=== PATIENT | female | born 1955 | race Caucasian/White ===

== ENCOUNTER 2023-10-28 12:43 | Observation (INO) ==
[2023-10-28] MEDS ORDERED: 0.9 % SODIUM CHLORIDE 1,000 ML IV ONE ×2 (12:46→13:42)
[2023-10-28 13:00] LABS: POC Calcium, Ionized 0.94 (1.16-1.32); POC Creatinine 1.3 (0.6-1.2)
[2023-10-28 13:38] LABS: Basophils # (Auto) 0.05 K/mcL (0.00-0.30); Basophils % (Auto) 0.6 % (0.0-2.0); Eosinophils # (Auto) 0.06 K/mcL (0.00-0.70); Eosinophils % (Auto) 0.7 % (0.0-7.0); Hematocrit 40.1 % (34.1-44.9); Hemoglobin 13.4 g/dL (11.2-15.7); Lymphocytes # (Auto) 4.02 K/mcL (1.50-4.80); Lymphocytes % (Auto) 48.4 % (15.5-49.0); Mean Cell Volume 95.5 fL (80.0-100.0); Mean Corpuscular HGB Conc 33.4 g/dL (31.0-36.0); Mean Platelet Volume 9.3 fL (8.8-12.5); Monocytes # (Auto) 0.46 K/mcL (0.10-0.90); Monocytes % (Auto) 5.5 % (1.0-12.0); Neutrophils % (Auto) 44.3 % (38.0-78.0); Platelet Count 278 K/mcL (140-440); Red Cell Distribution Width 13.4 % (11.5-14.5); WBC 8.3 K/mcL (4.5-11.0)
[2023-10-28] MEDS ORDERED: fentaNYL 100 MCG/2 ML VIAL IV ONE ×3 (14:02→16:31)
[2023-10-28] MEDS ORDERED: KETOROLAC 30 MG/ML VIAL IV ONE (16:31)
[2023-10-28] MEDS ORDERED: ACETAMINOPHEN 325 MG TABLET PO PRN ×2 (17:35→17:56)
[2023-10-28] MEDS ORDERED: ONDANSETRON 4 MG/2 ML VIAL IV PRN ×2 (17:35→17:56)
[2023-10-28] MEDS ORDERED: morphine 4 MG/ML VIAL IV PRN ×2 (17:35→17:56)
[2023-10-28 17:51] LABS: Alcohol,Blood 0.271 gm/dL (<0.010)
[2023-10-28] MEDS ORDERED: SENNOSIDES 1 TABLET PO PRN (17:56)
[2023-10-28] MEDS ORDERED: KETOROLAC 15 MG/ML VIAL IV PRN (17:56)
[2023-10-28] MEDS ORDERED: POLYETHYLENE GLYCOL 3350 17 GM PACKET PO PRN (17:56)
[2023-10-28] MEDS ORDERED: POTASSIUM CHLORIDE 20 MEQ TABLET PO PRN ×2 (17:56)
[2023-10-28] MEDS ORDERED: MAGNESIUM SULFATE 2 GM/50 ML BAG IV PRN (17:56)
[2023-10-28] MEDS ORDERED: IPRATROPIUM/ALBUTEROL 3 ML AMPUL.NEB NEB PRN (17:56)
[2023-10-28] MEDS ORDERED: POTASSIUM CHLORIDE 40 MEQ in DEXTROSE 5% IN WATER 500 ML IV PRN (17:56)
[2023-10-28] MEDS ORDERED: chlordiazePOXIDE 25 MG CAPSULE PO PRN (18:35)
[2023-10-28] MEDS ORDERED: LORazepam 2 MG/ML VIAL IV PRN (18:35)
[2023-10-28] MEDS ORDERED: DIAZEPAM 10 MG/2 ML SYRINGE IV PRN (20:27)
[2023-10-28] MEDS: DOCUSATE SODIUM 100 MG CAPSULE PO SCH (20:34)
[2023-10-28] MEDS ORDERED: NICOTINE 21 MG PATCH ONE (20:44)
[2023-10-28] MEDS: FOLIC ACID 1 MG TABLET PO SCH (20:48)
[2023-10-28] MEDS: THIAMINE 100 MG TABLET PO SCH (20:48)
[2023-10-28] MEDS: HYDROcodone/APAP 5/325MG TABLET PO PRN (20:48)
[2023-10-28] MEDS: MULTIVIT,THER IRON,CA,FA & MIN 1 TABLET PO SCH (20:48)
[2023-10-28] MEDS: 0.9 % SODIUM CHLORIDE 10 ML SYRINGE IV SCH (20:56)
[2023-10-28] MEDS ORDERED: SENNOSIDES 1 TABLET PO SCH (21:00)
[2023-10-28] MEDS ORDERED: DOCUSATE SODIUM 100 MG CAPSULE PO SCH (21:00)
[2023-10-28] MEDS ORDERED: 0.9 % SODIUM CHLORIDE 10 ML SYRINGE IV SCH (22:00)
[2023-10-29] MEDS: HYDROcodone/APAP 5/325MG TABLET PO PRN ×3 (01:04→13:25)
[2023-10-29] MEDS: IBUPROFEN 600 MG TABLET PO PRN ×2 (04:12→11:47)
[2023-10-29] MEDS: 0.9 % SODIUM CHLORIDE 10 ML SYRINGE IV SCH (06:08)
[2023-10-29] MEDS: MULTIVIT,THER IRON,CA,FA & MIN 1 TABLET PO SCH (08:12)
[2023-10-29] MEDS: THIAMINE 100 MG TABLET PO SCH (08:12)
[2023-10-29] MEDS: DOCUSATE SODIUM 100 MG CAPSULE PO SCH (08:12)
[2023-10-29] MEDS: FOLIC ACID 1 MG TABLET PO SCH (08:12)
[2023-10-29] MEDS ORDERED: LEVOTHYROXINE 125 MCG TABLET PO SCH (09:00)
[2023-10-29] MEDS ORDERED: DULoxetine 30 MG CAPSULE PO SCH (09:00)
[2023-10-29] MEDS ORDERED: NICOTINE 21 MG PATCH TOPICAL SCH (21:00)
== END 2023-10-29 14:25 | disposition home or self-care (01) ==
LOC: ED 12:43 → ICU 12:43
PROVIDERS: ADMIT Internal Medicine; ATTEND Internal Medicine